=== PATIENT | male | born 2000 | race Caucasian/White ===

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

== ENCOUNTER 2022-04-22 00:27 | Inpatient (IN) | payer MEDICAID, OTHER ==
[2022-04-22] MEDS ORDERED: HALOPERIDOL LACTATE 5 MG/ML 1 ML VIAL IM PRN (06:41)
[2022-04-22] MEDS ORDERED: MAGNESIUM HYDROXIDE 2,400 MG/10 ML CUP PO PRN (06:41)
[2022-04-22] MEDS ORDERED: MAG HYDROX/AL HYDROX/SIMETH 30 ML CUP PO PRN (06:41)
[2022-04-22] MEDS ORDERED: ACETAMINOPHEN TAB 325 MG TAB PO PRN (06:41)
[2022-04-22] MEDS ORDERED: LORazepam 2 MG/ML INJ IM PRN (06:44)
[2022-04-22] MEDS ORDERED: haloperidoL 5 MG TAB PO PRN (06:45)
--- NOTE | 2022-04-22 07:05 | ED ---
Psych HPI - General Chief Complaint: Psychiatric Symptoms Stated Complaint: Mental health Time Seen by Provider: 04/22/22 00:49 Source: police Mode of arrival: ambulatory - History of Present Illness MD Complaint: suicidal ideation, feels depressed -: days(s) Associated Psychiatric Symptoms: depression, suicidal ideation History of same: No Quality: getting worse Improves With: none Worsens With: none Context: recent alcohol abuse - Related Data Home Medications Medication Instructions Recorded Confirmed Methylphenidate HCl [Ritalin] 10 mg PO DAILY@1500 01/22/14 03/07/17 cloNIDine [Catapres-TTS] 0.2 mg PO HS 01/22/14 03/07/17 Montelukast [Singulair] 10 mg PO HS 05/30/14 03/07/17 Cetirizine HCl [Zyrtec] 10 mg PO HS 11/30/16 03/07/17 Melatonin 5 mg PO HS 11/30/16 03/07/17 Methylphenidate HCl [Ritalin LA] 30 mg PO DAILY 11/30/16 03/07/17 Omeprazole [PriLOSEC] 20 mg PO HS 11/30/16 03/07/17 Previous Rx's Medication Instructions Recorded Ondansetron Odt [Zofran Odt] 4 mg PO Q8HR PRN #20 tab 11/30/17 Allergies Allergy/AdvReac Type Severity Reaction Status Date / Time No Known Allergies Allergy Verified 04/22/22 00:34 Review of Systems ROS Statement: Those systems with pertinent positive or pertinent negative responses have been documented in the HPI. ROS Other: All systems not noted in ROS Statement are negative. Constitutional: Denies: fever, chills Respiratory: Denies: cough, dyspnea Cardiovascular: Denies: chest pain, palpitations Gastrointestinal: Denies: abdominal pain, vomiting, diarrhea Genitourinary: Denies: dysuria Musculoskeletal: Denies: back pain Skin: Denies: rash Neurological: Denies: headache, weakness Past Medical History Past Medical History: Asthma History of Any Multi-Drug Resistant Organisms: None Reported Past Surgical History: Tonsillectomy Past Psychological History: ADD/ADHD, Depression Smoking Status: Current every day smoker, Vaper Past Alcohol Use History: Occasional Past Drug Use History: Marijuana General Exam Limitations: no limitations General appearance: alert, in no apparent distress Head exam: Present: atraumatic, normocephalic Eye exam: Present: normal appearance. Absent: scleral icterus, conjunctival injection Neck exam: Present: normal inspection, full ROM Respiratory exam: Present: normal lung sounds bilaterally. Absent: respiratory distress, wheezes, rales, rhonchi, stridor Cardiovascular Exam: Present: regular rate, normal rhythm, normal heart sounds. Absent: systolic murmur, diastolic murmur, rubs, gallop GI/Abdominal exam: Present: soft. Absent: distended, tenderness, guarding, rebound, rigid, mass Extremities exam: Present: normal inspection, normal capillary refill. Absent: pedal edema, calf tenderness Back exam: Present: normal inspection. Absent: CVA tenderness (R), CVA tenderness (L) Neurological exam: Present: alert Psychiatric exam: Present: depressed, suicidal ideation. Absent: agitated, anxious, flat affect, homicidal ideation Skin exam: Present: warm, dry, intact, normal color. Absent: rash Course Vital Signs 04/22/22 00:32 Temperature 98 F Pulse Rate 128 H Respiratory 20 Rate Blood Pressure 151/76 O2 Sat by Pulse 98 Oximetry Medical Decision Making - Medical Decision Making @ -[none] CT interpreted by me (1pt min.)? @ -[none] U/S interpreted by me (1pt. min.)? @ -[none] What testing was considered but not performed? (CT, X-rays, U/S, labs)? Why? @ [CT, X-rays, U/S, labs? Why?] What meds were considered but not given? Why? @ -[none] Did you discuss the management of the patient with other professionals? @ -Emergency psychiatric services Did you reconcile home meds? @ -[none] Was smoking cessation discussed for >3mins.? @ -[none] Was critical care preformed (if so, how long)? @ -[none] Were there social determinants of health that impacted care today? How? (Homelessness, low income, unemployed, alcoholism, drug addiction, transportation, low edu. Level, literacy, decrease access to med. care, penitentiary, rehab)? @ -no Was there de-escalation of care discussed even if they declined? (Discuss DNR or withdrawal of care, Hospice)? @ -[no What co-morbidities impacted this encounter? (DM, HTN, Smoking, COPD, CAD, Cancer, CVA, Hep., AIDS, mental health diagnosis, sleep apnea, morbid obesity)? @ -[ Was patient admitted / discharged? @ -Admitted psychiatric service Undiagnosed new problem with uncertain prognosis? @ -[none] Drug Therapy requiring intensive monitoring for toxicity (Heparin, Nitro, Insulin, Cardizem)? @ -[none] Were any procedures done? @ -[none] Diagnosis/symptom? @ -Mood disorder Acute, or Chronic, or Acute on Chronic? @ -Acute Uncomplicated (without systemic symptoms) or Complicated (systemic symptoms)? @ -[Uncomplicated Side effects of treatment? @ -[none] Exacerbation, Progression, or Severe Exacerbation] @ -[no] Poses a threat to life or bodily function? @ -Yes - Lab Data Lab Results 04/22/22 04/22/22 Range/Units 05:54 06:39 Urine Color Light Yellow Urine Appearance Clear (Clear) Urine pH 5.5 (5.0-8.0) Ur Specific [place] 1.004 (1.001-1.035) Urine Protein Negative (Negative) Urine Glucose (UA) Negative (Negative) Urine Ketones Negative (Negative) Urine Blood Negative (Negative) Urine Nitrite Negative (Negative) Urine Bilirubin Negative (Negative) Urine Urobilinogen <2.0 (<2.0) mg/dL Ur Leukocyte Esterase Negative (Negative) Urine Opiates Screen Not Detected (NotDetected) Ur Oxycodone Screen Not Detected (NotDetected) Urine Methadone Screen Not Detected (NotDetected) Ur Propoxyphene Screen Not Detected (NotDetected) Ur Barbiturates Screen Not Detected (NotDetected) U Tricyclic Antidepress Not Detected (NotDetected) Ur Phencyclidine Scrn Not Detected (NotDetected) Ur Amphetamines Screen Not Detected (NotDetected) U Methamphetamines Scrn Not Detected (NotDetected) U Benzodiazepines Scrn Not Detected (NotDetected) Urine Cocaine Screen Not Detected (NotDetected) U Marijuana (THC) Screen Detected H (NotDetected) Coronavirus (PCR) Not Detected (Not Detectd) Disposition Clinical Impression: Mood disorder Disposition: ADMITTED IP TO THIS [facility] Condition: Fair Is patient prescribed a controlled substance at d/c from ED?: No
[2022-04-22 07:12] LABS: Appearance,Urine Clear (Clear); Bilirubin,Urine Negative (Negative); Blood,Urine Negative (Negative); Color,Urine Light Yellow; Glucose,Urine (UA) Negative (Negative); Ketones,Urine Negative (Negative); Leukocyte Esterase,Urine Negative (Negative); Nitrite,Urine Negative (Negative); PH, Urine 5.5 (5.0-8.0); Protein,Urine Negative (Negative); Specific Gravity,Urine 1.004 (1.001-1.035); Urobilinogen,Urine <2.0 mg/dL (<2.0)
[2022-04-22 07:24] LABS: Amphetamine Screen,Urine Not Detected (NotDetected); Barbiturate Screen,Urine Not Detected (NotDetected); Benzodiazepines Screen,Urine Not Detected (NotDetected); Cocaine Screen,Urine Not Detected (NotDetected); Methadone Screen, Urine Not Detected (NotDetected); Opiate Screen,Urine Not Detected (NotDetected); Oxycodone Screen, Urine Not Detected (NotDetected); Phencyclidine Screen,Urine Not Detected (NotDetected); Tricyclic Antidepressant,Urine Not Detected (NotDetected); Urn Cannabinoid Scrn Detected (NotDetected)
--- NOTE | 2022-04-22 08:44 | P.HP ---
Psychiatric H&P - . H&P Date: 04/22/22 History & Physical: Allergies Allergy/AdvReac Type Severity Reaction Status Date / Time No Known Allergies Allergy Verified 04/22/22 00:34 Vital Signs Temp 98 F 04/22/22 00:32 Pulse 128 H 04/22/22 00:32 Resp 20 04/22/22 00:32 BP 151/76 04/22/22 00:32 Pulse Ox 98 04/22/22 00:32 FiO2 Intake & Output 04/21/22 04/22/22 04/22/22 18:59 06:59 18:59 Weight 81.647 kg Laboratory Last Values Urine Color Light Yellow 04/22/22 06:39 Urine Appearance Clear (Clear) 04/22/22 06:39 Urine pH 5.5 (5.0-8.0) 04/22/22 06:39 Ur Specific [place] 1.004 (1.001-1.035) 04/22/22 06:39 Urine Protein Negative (Negative) 04/22/22 06:39 Urine Glucose (UA) Negative (Negative) 04/22/22 06:39 Urine Ketones Negative (Negative) 04/22/22 06:39 Urine Blood Negative (Negative) 04/22/22 06:39 Urine Nitrite Negative (Negative) 04/22/22 06:39 Urine Bilirubin Negative (Negative) 04/22/22 06:39 Urine Urobilinogen <2.0 mg/dL (<2.0) 04/22/22 06:39 Ur Leukocyte Esterase Negative (Negative) 04/22/22 06:39 Urine Opiates Screen Not Detected (NotDetected) 04/22/22 06:39 Ur Oxycodone Screen Not Detected (NotDetected) 04/22/22 06:39 Urine Methadone Screen Not Detected (NotDetected) 04/22/22 06:39 Ur Propoxyphene Screen Not Detected (NotDetected) 04/22/22 06:39 Ur Barbiturates Screen Not Detected (NotDetected) 04/22/22 06:39 U Tricyclic Antidepress Not Detected (NotDetected) 04/22/22 06:39 Ur Phencyclidine Scrn Not Detected (NotDetected) 04/22/22 06:39 Ur Amphetamines Screen Not Detected (NotDetected) 04/22/22 06:39 U Methamphetamines Scrn Not Detected (NotDetected) 04/22/22 06:39 U Benzodiazepines Scrn Not Detected (NotDetected) 04/22/22 06:39 Urine Cocaine Screen Not Detected (NotDetected) 04/22/22 06:39 U Marijuana (THC) Screen Detected (NotDetected) H 04/22/22 06:39 Coronavirus (PCR) Not Detected (Not Detectd) 04/22/22 05:54 04/22/22 08:29 The patient was admitted last night in voluntarily. He had gone to a [employer] and had too much to drink. The family notes that he has been more and more depressed ever since his mother 2 years ago. She was just 36 and of double pneumonia. More recently he lost his job and although he lives alone in an apartment is not sure how he is going to pay for. He admits to being a loner does not like people has no friends and very little contact with family. His family says that they have noted that he has not been sleeping or eating. When he was sufficiently disinhibited with alcohol he began to say things that were "dark" including the intent that if he went home he would kill himself. In the emergency room he answered questions vaguely, "yes no maybe" he would not say he was suicidal he would not say he was not suicidal he just said he didn't want to be here but did not promise that if he went home he would not kill himself. Past treatment: Patient denies ever having been to counseling or having taken any medications however the chart says that he is on Ritalin LA 30 in the morning and short acting 10 mg at 3 PM Family history: Other than having made some comments about his father not liking him he basically did not want to talk about family. He said that he supposes he gets along with them okay and he didn't know if they had any psychiatric problems with depression or alcohol. Substance use: He did admit to almost daily marijuana use and occasional alcohol use although getting drunk is unusual for him. He denied the use of any illicit drugs Mental status exam: I found him lying in a dark room at 8:00 in the morning. When asked him if he would come and talk to me he said, "how long will this take" The patient had 0 eye contact throughout the evaluation He moved extremely slowly and sat slouched in his chair with his hands hanging down to the side motionless. Speech: Multiple times I asked him to please repeat himself as I could not hear him 4 feet away. He is hair was disheveled and he is not taking any of first to get dressed by 9 in the morning and did not go to breakfasts although he claims his appetite is fine... He was oriented to to date. He said, "fucking first" I gave him 3 things to remember and after 2 repeats he was able to repeat them when asked him to remember them later he said that he could not I think he just didn't want to try. He could not think of anything similar between cats and snakes He could not think of any application for the proverb the grass looks greener on the side defense. He appears to be of good intelligence he just does not want to try. Judgment: Not participating in an interview with your psychiatrist when you don't want to be in the hospital and don't want treatment does not make sense and shows poor judgment General information he can name the last 3 presidents but only one of the [facility] and that was Jewel Marino. He denies any hallucinations I did not see any evidence thereof he denied that he had any paranoid ideas He denied ever having had a manic episode. When asked if he felt suicidal he basically said, "I don't know. " Diagnosis: Major depression single episode severe Dysthymic disorder Assessment patient is totally uncooperative and is impossible to assess but he looks severely medically depressed and was expressing suicidal ideas with his family and these are probably his actual inner thoughts reveal because he was disinhibited. I believe that he has a danger to himself needs to get on medication get into counseling and be more open about what is making him so depressed. Plan: He needs to be hospitalized we will try to talk him into taking medications. He did sign in but is a little unclear why. We will probably have to serve him take him to court but I think it would be good to give him one day to settle in. I spent a lot of time explaining to him what the purpose of medications are that they're not permanent and they make it easier to do the work to turn her life around. Hopefully by tomorrow he'll decide to take medications.
[2022-04-22] MEDS: NICOTINE 14MG/24HR PATCH TRANSDERM SCH (10:42)
--- NOTE | 2022-04-23 05:04 | P.PN ---
Progress Note - Text Progress Note Date: 04/22/22 Attempted to see the patient in the mental health unit on 04/22/22 at 2200. The patient refused to be seen to be evaluated.
--- NOTE | 2022-04-23 11:53 | P.PN ---
Progress Note - Text Progress Note Date: 04/23/22 Interval History: Patient was seen resting in bed and was directable and agreeable to speak with the caption writer in his room. The patient was initially upset and did not want to participate in the psychiatric interview however he was slow to warm up. The patient is currently denying any suicidal or homicidal ideation, intention, and/or plan. He is not reporting any auditory or visual hallucinations. He is denying any paranoia or other delusions. Despite this, the patient remains primarily isolative to himself in his bedroom, with minimal energy, interaction, and very poor eye contact. His hygiene and grooming is also poor. During the interview, the patient became quite tearful after asking if anyone asked him how he is feeling. He does express that he has some issues regarding his family relationships. He does endorse feelings of hopelessness and helplessness. He does not confirm or deny the need for medications. He was informed that medication will be ordered this evening. Mental Status Exam: General Appearance: Patient appears to be stated age is alert, initially uncooperative but later cooperates, and is directable. Very disheveled. Behavior: Displays psychomotor retardation. Poor eye contact. Tearful. Speech: Patient's speech is nonspontaneous, low in volume, short and abrupt. Mood/Affect: Mood is "fine, I just need to go home," affect is flat, withdrawn, and tearful. Suicidality/Homicidality: Patient denies having any suicidal or homicidal ideation intent or plan. Perceptions: Patient denies any visual hallucinations and denies any auditory hallucinations Though content/process: Patient appears to be dysphoric. Memory and concentration: AOX3, grossly intact for the purposes of this session Judgment and insight: Poor Vital Signs Temp 97.3 F L 04/23/22 06:35 Pulse 80 04/23/22 06:35 Resp 14 04/23/22 06:35 BP 135/68 04/23/22 06:35 Pulse Ox 98 04/22/22 00:32 FiO2 Intake & Output 04/22/22 04/23/22 04/23/22 18:59 06:59 18:59 Weight 81.647 kg Assessment Major depressive disorder Plan: -Patient continues to meet criteria for inpatient psychiatric admission for symptom stabilization and safety. Patient has signed adult voluntary form. Should patient refuse medications, we will likely proceed with petition and certification. Medications: \\Prozac 30 mg by mouth at bedtime for depression -When necessary Ativan and Haldol for agitation/aggression. -NRT - nicotine patch -SW on board for discharge planning. Encouraged the patient to participate in milieu.
[2022-04-23] MEDS: NICOTINE 14MG/24HR PATCH TRANSDERM SCH ×3 (13:23→19:56)
[2022-04-23] MEDS: FLUoxetine HCL 10 MG CAP PO SCH (19:55)
[2022-04-24] MEDS: NICOTINE 14MG/24HR PATCH TRANSDERM SCH (11:29)
--- NOTE | 2022-04-24 12:34 | P.PN ---
Progress Note - Text Progress Note Date: 04/24/22 Interval History: Patient was seen resting in bed and was directable and agreeable to speak with the sports book writer in his room. The patient reports that he is unsure as to why he was admitted. He is denying any suicidal or homicidal ideation, intention, and/or plan. He is not reporting any auditory or visual hallucinations. He reports no paranoia or other delusions. He has been adherent with his medication however reports that he felt that the Prozac caused his mind to race. He reports no issues regarding his sleep but states that his appetite continues to be low. He continues to remain primarily isolative to himself in his room and has not been able to address his hygiene. The patient was encouraged to go to groups. He expresses disinterest at this time. Mental Status Exam: General Appearance: Patient appears to be stated age is alert, initially uncooperative but later cooperates, and is directable. Very disheveled. Behavior: Displays psychomotor retardation. Poor eye contact. Speech: Patient's speech is nonspontaneous, low in volume, short and abrupt. Mood/Affect: Mood is "I'm just tired," affect is flat, withdrawn, and tearful. Suicidality/Homicidality: Patient denies having any suicidal or homicidal ideation intent or plan. Perceptions: Patient denies any visual hallucinations and denies any auditory hallucinations Though content/process: Patient appears to be dysphoric. Memory and concentration: AOX3, grossly intact for the purposes of this session Judgment and insight: Poor Vital Signs Temp 96.9 F L 04/24/22 06:00 Pulse 69 04/24/22 06:00 Resp 17 04/24/22 06:00 BP 128/61 04/24/22 06:00 Pulse Ox 94 L 04/24/22 06:00 FiO2 Assessment Major depressive disorder Plan: -Patient continues to meet criteria for inpatient psychiatric admission for symptom stabilization and safety. Patient has signed adult voluntary form. Medications: \\Prozac 30 mg by mouth at bedtime for depression -When necessary Ativan and Haldol for agitation/aggression. -NRT - nicotine patch -SW on board for discharge planning. Encouraged the patient to participate in milieu.
[2022-04-24] MEDS: FLUoxetine HCL 10 MG CAP PO SCH (21:39)
--- NOTE | 2022-04-25 01:03 | P.CONS ---
History of Present Illness - Reason for Consult Consult date: 04/25/22 - History of Present Illness The patient is a 22-year-old male with a PMH of asthma, ADHD, depression, marijuana abuse, tobacco abuse was brought to the emergency room under police custody after his father petitioned him for expressing suicidal ideation. The patient was admitted to the mental health unit where he was seen and evaluated. The patient complained of left medial hand pain after he punched a hardwood floor prior to arrival at the emergency room. He reported moderate pain rated at a 5 out of 10 and is able to make a fist. Denied any numbness or tingling. Also denied any additional complaints. He denied experiencing chest discomfort, shortness of breath, fever, chills, cough, nausea, vomiting, abdominal pain, diarrhea. Reports occasional marijuana use and smoking one pack of cigars daily. Review of systems: Pertinent positives and negatives as discussed in HPI, a complete review of systems was performed and all other systems are negative. Physical examination: General: non toxic, no distress, appears at stated age, normal weight Derm: no unusual rashes/lesions, no unusual ecchymoses, warm, dry Head: atraumatic, normocephalic, symmetric Eyes: EOMI, no lid lag, anicteric sclera ENT: Nose and ears atraumatic, no thrush, no pharyngeal erythema Neck: trachea midline, supple Mouth: no lip lesion, mucus membranes moist Cardiovascular: S1S2 reg, no murmur, no edema Lungs: CTA bilateral, no rhonchi, no rales , no accessory muscle use Abdominal: soft, nontender to palpation, no guarding Ext: no gross muscle atrophy, no contractures, left hand medial dorsal surface tenderness with normal range of motion Neuro: No gross focal neuro deficits noted Psych: Alert, oriented, appropriate affect Assessment/plan Left hand trauma with pain -Obtain x-ray to rule out underlying fracture Hx of Asthma -Patient does not take inhalers at home Chronic conditions: Marijuana, tobacco abuse -Advised on the importance of cessation Thank you for allowing us to participate in the care of this patient. We will follow peripherally. Do not hesitate to contact us with questions. Someone can be reached from the [facility] hospitalist group at all hours of the day at [phone]. Past Medical History Past Medical History: Asthma History of Any Multi-Drug Resistant Organisms: None Reported Past Surgical History: Tonsillectomy Additional Past Surgical History / Comment(s): Pt is dressed in his own street clothes. Past Anesthesia/Blood Transfusion Reactions: No Reported Reaction Past Psychological History: ADD/ADHD, Depression Smoking Status: Current every day smoker, Vaper Past Alcohol Use History: Occasional Past Drug Use History: Marijuana - Past Family History Father Family Medical History: COPD Medications and Allergies Home Medications Medication Instructions Recorded Confirmed Type No Known Home Medications 04/23/22 04/23/22 History Allergies Allergy/AdvReac Type Severity Reaction Status Date / Time No Known Allergies Allergy Verified 04/22/22 00:34 Physical Exam Vitals: Vital Signs Temp Pulse Resp BP Pulse Ox 04/24/22 06:00 96.9 F L 69 17 128/61 94 L
[2022-04-25] MEDS: NICOTINE 14MG/24HR PATCH TRANSDERM SCH (08:09)
--- NOTE | 2022-04-25 11:45 | P.PN ---
Progress Note - Text Progress Note Date: 04/25/22 Interval History: Patient was seen resting in bed and was directable and agreeable to speak with the comic book writer in his room. The patient is currently denying any suicidal or homicidal ideation, intention, and/or plan. He is not reporting any auditory or visual hallucinations. He denies any paranoia or other delusions. The patient has been in adherent with his medication and is not endorsing any significant side effects at this time. He continues to remain primarily isolative to himself in his room. He does agree that him and his father have not been seeing eye to eye in regards to his life choices. He was encouraged to work on communicating with his family about how he has been feeling and what needs to be done. He was encouraged to be out of bed and to attend groups. Mental Status Exam: General Appearance: Patient appears to be stated age is alert, directable, and cooperative. Disheveled. Behavior: Patient continues to display psychomotor retardation. Eye contact is improving. Speech: Patient's speech is nonspontaneous, low in volume, short and abrupt. Mood/Affect: Mood is "I'm okay," affect is constricted Suicidality/Homicidality: Patient denies having any suicidal or homicidal ideation intent or plan. Perceptions: Patient denies any visual hallucinations and denies any auditory hallucinations Though content/process: Less dysphoric. No future orientation. Memory and concentration: AOX3, grossly intact for the purposes of this session Judgment and insight: Poor Vital Signs Temp 96.9 F L 04/24/22 06:00 Pulse 69 04/24/22 06:00 Resp 17 04/24/22 06:00 BP 128/61 04/24/22 06:00 Pulse Ox 94 L 04/24/22 06:00 FiO2 Assessment Major depressive disorder Cannabis use disorder Plan: -Patient continues to meet criteria for inpatient psychiatric admission for symptom stabilization and safety. Patient has signed adult voluntary form. Medications: Prozac 30 mg by mouth at bedtime for depression -When necessary Ativan and Haldol for agitation/aggression. -NRT - nicotine patch -SW on board for discharge planning. Encouraged the patient to participate in milieu.
[2022-04-25] MEDS: FLUoxetine HCL 10 MG CAP PO SCH (21:23)
[2022-04-26] MEDS: NICOTINE 14MG/24HR PATCH TRANSDERM SCH (08:18)
[2022-04-26] MEDS ORDERED: FLUoxetine HCL 10 MG CAP PO SCH (12:00)
--- NOTE | 2022-04-26 12:03 | P.PN ---
Progress Note - Text Progress Note Date: 04/26/22 Interval History: Patient was seen sitting at the table today outside the activities room and wo rking on a retreat. She was agreeable to strict commercial insurance underwriter in the office today. He claims that he was feeling a bit depressed this morning and claims that his anxiety has been improving mildly. He claims that he feels he is almost ready for discharge likely tomorrow. He claims that he did not sleep much at all last night and we spoke about the options and he was agreeable to try trazodone tonight. He claims that his appetite is fair at this time. He is trying to go to some groups and trying to participate. She was also seen wandering the hallways with another patient and also trying to socialize more. At this time he is denying any suicidal or homicidal ideations intent or plan. Denying any auditory or visual hallucinations. Mental Status Exam: General Appearance: Patient appears to be stated age is alert, directable, and more cooperative. Hygiene and grooming. Behavior: Patient is more cooperative today. No psychomotor retardation. Speech: Patient's speech is nonspontaneous, low in volume, improving mildly Mood/Affect: Mood is "a bit better" affect is constricted Suicidality/Homicidality: Patient denies having any suicidal or homicidal ideation intent or plan. Perceptions: Patient denies any visual hallucinations and denies any auditory hallucinations Though content/process: Less dysphoric. No paranoia or delusions. [place]. Memory and concentration: AOX3, grossly intact for the purposes of this session Judgment and insight: Poor, improving mildly Assessment: Major depressive disorder Cannabis use disorder Plan: -Patient continues to meet criteria for inpatient psychiatric admission for symptom stabilization and safety. Patient has signed adult voluntary form. Medications: start trazodone 50 mg qhs for insomnia/mood, Prozac 30 mg by to daily for depression and anxiety and increase to 40 mg tomorrow. -When necessary Ativan and Haldol for agitation/aggression. -NRT - nicotine patch -SW on board for discharge planning. Encouraged the patient to participate in milieu. possibly discharge tomorrow if patient is improving.
[2022-04-26] MEDS ORDERED: FLUoxetine HCL 10 MG CAP PO STA (12:04)
[2022-04-26] MEDS: traZODone HCL 50 MG TAB PO SCH (23:59)
[2022-04-27] MEDS: NICOTINE 14MG/24HR PATCH TRANSDERM SCH (04:56)
[2022-04-27] MEDS ORDERED: FLUoxetine HCL 20 MG CAP PO SCH (09:00)
[2022-04-27] MEDS: LORazepam 1 MG TAB PO PRN (12:14)
--- NOTE | 2022-04-27 13:58 | P.PN ---
Progress Note - Text Progress Note Date: 04/27/22 Interval History: Patient was seen and was directable and agreeable to speak with poem writer in the office. He is crying during entire assessment and affect is depressed, states he "don't feel good". He appears to minimize his depression in hopes of discharge. He states he is responding well to the increase in Prozac from 30 mg to 40 mg this morning. He states after taking the Prozac this morning, he began to have "racing thoughts, feel unsettled and restless". He reports poor sleep last night of about 4 hours. He endorses feeling anxious. He is denying suicidal and homicidal ideation at this time, however he is crying and appears to be minimizing his symptoms. He becomes upset when told he would not be discharged today. At this time patient denies any suicidal or homicidal ideation, intent or plan. Patient denies any auditory, visual hallucinations and denies any paranoia or delusions. Patient denies any side effects from the medications and has been compliant with meds. Mental Status Exam: General Appearance: Patient appears to be stated age, dressed in camoflauge clothing. Behavior: Patient is crying, tearful, seated without agitated behavior. Speech: Patient's speech is fluent and non-pressured, soft tone. Mood/Affect: Mood is "don't feel good", affect is congruent and constricted. Suicidality/Homicidality: Patient denies having any suicidal or homicidal ideation intent or plan, however he is tearful and depressed. Perceptions: Patient denies any visual hallucinations and denies any auditory hallucinations. Though content/process: There is no evidence of any delusional thought content and thought process is linear. Memory and concentration: AOX3, grossly intact for the purposes of this session Judgment and insight: Fair Assessment: Major depressive disorder Cannabis use disorder Plan: -Patient continues to meet criteria for inpatient psychiatric admission for symptom stabilization and safety. -Medications: Decrease Prozac to 30 mg daily for depression since he feels the 40 mg is too much. We discussed switching Prozac to a different antidepressant however he is not agreeable at this time. Will attempt to address antidepressant again with him later today after he calms down. -When necessary Ativan and Haldol for agitation/aggression. -NRT - nicotine patch -SW on board for discharge planning. Encouraged the patient to participate in milieu.
[2022-04-27] MEDS: traZODone HCL 50 MG TAB PO SCH (21:18)
[2022-04-28] MEDS: NICOTINE 14MG/24HR PATCH TRANSDERM SCH (08:27)
[2022-04-28] MEDS ORDERED: FLUoxetine HCL 10 MG CAP PO SCH (09:00)
[2022-04-28] MEDS ORDERED: SERTRALINE 50 MG TAB PO SCH (09:00)
--- NOTE | 2022-04-28 19:36 | P.PN ---
Progress Note - Text Progress Note Date: 04/28/22 Interval History: Patient was seen isolating to his room and asleep in bed. He is agreeable to speak with principal technical writer. He reports feeling a little bit better today after stopping the Prozac and starting Zoloft. He reports the Zoloft makes him a bit tired and so we discussed moving it to the evening and he agreed. He appears withdrawn and has not been attending groups. At this time patient denies any suicidal or homicidal ideation, intent or plan. Patient denies any auditory, visual hallucinations and denies any paranoia or delusions. Mental Status Exam: General Appearance: Patient appears to be stated age, dressed in camoflauge clothing. Behavior: Patient appears withdrawn, isolative, laying in bed. Speech: Patient's speech is fluent and non-pressured, soft tone. Mood/Affect: Mood is "better today", affect is depressed and constricted. Suicidality/Homicidality: Patient denies having any suicidal or homicidal ideation intent or plan. Perceptions: Patient denies any visual hallucinations and denies any auditory hallucinations. Though content/process: There is no evidence of any delusional thought content and thought process is linear. Memory and concentration: AOX3, grossly intact for the purposes of this session Judgment and insight: Fair Assessment: Major depressive disorder Cannabis use disorder Plan: -Patient continues to meet criteria for inpatient psychiatric admission for symptom stabilization and safety. -Medications: Prozac discontinued and he started Zoloft 50 mg daily this morning. Will change Zoloft to 75 mg QHS starting tomorrow night. -When necessary Ativan and Haldol for agitation/aggression. -NRT - nicotine patch -SW on board for discharge planning. Encouraged the patient to participate in milieu.
[2022-04-28] MEDS: traZODone HCL 50 MG TAB PO SCH (21:20)
[2022-04-29] MEDS: NICOTINE 14MG/24HR PATCH TRANSDERM SCH (08:04)
[2022-04-29 15:43] VITALS: RESP 16
[2022-04-29] MEDS ORDERED: SERTRALINE 50 MG TAB PO SCH (21:00)
[2022-04-29] MEDS: traZODone HCL 50 MG TAB PO SCH (21:25)
--- NOTE | 2022-04-29 22:21 | P.PN ---
Progress Note - Text Progress Note Date: 04/29/22 Interval History: [facility] and is agreeable to speak with parts data writer. He reports feeling better today, affect is brighter, is not tearful, is more engaged this evening. He was more withdrawn earlier in the day and did not attend most groups. At this time patient denies any suicidal or homicidal ideation, intent or plan. Patient denies any auditory, visual hallucinations and denies any paranoia or delusions. Mental Status Exam: General Appearance: Patient appears to be stated age, dressed in camoflauge clothing. Behavior: Patient is calm and attempts to cooperate, continues to be somewhat withdrawn but improving. Speech: Patient's speech is fluent and non-pressured, soft tone. Mood/Affect: Mood is "better today", affect is depressed and constricted. Suicidality/Homicidality: Patient denies having any suicidal or homicidal ideation intent or plan. Perceptions: Patient denies any visual hallucinations and denies any auditory hallucinations. Though content/process: There is no evidence of any delusional thought content and thought process is linear. Memory and concentration: AOX3, grossly intact for the purposes of this session Judgment and insight: Fair Assessment: Major depressive disorder Cannabis use disorder Plan: -Patient continues to meet criteria for inpatient psychiatric admission for symptom stabilization and safety. -Medications: Zoloft increased to 75 mg QHS starting tonight for depression. -When necessary Ativan and Haldol for agitation/aggression. -NRT - nicotine patch -SW on board for discharge planning. Encouraged the patient to participate in milieu.
[2022-04-29] MEDS: LORazepam 1 MG TAB PO PRN (23:13)
[2022-04-29 23:15] VITALS: TEMP 97.9
[2022-04-30] MEDS: NICOTINE 14MG/24HR PATCH TRANSDERM SCH (08:12)
--- NOTE | 2022-04-30 12:44 | P.PN ---
Progress Note - Text Progress Note Date: 04/30/22 Interval History: Patient was seen in the [facility] today and is agreeable to speak with caption writer. He reports feeling better since he stopped the Prozac, mood and affect are improving, is not tearful, is more engaged today however he is still not attending groups, is soft spoken with downward gaze, still somewhat depressed and withdrawn. At this time patient denies any suicidal or homicidal ideation, intent or plan. Patient denies any auditory, visual hallucinations and denies any paranoia or delusions. Mental Status Exam: General Appearance: Patient appears to be stated age, dressed in camoflauge clothing, fair hygiene. Behavior: Patient is calm and attempts to cooperate, continues to be somewhat withdrawn but improving. Speech: Patient's speech is fluent and non-pressured, soft tone. Mood/Affect: Mood is "better today", affect is improving and constricted. Suicidality/Homicidality: Patient denies having any suicidal or homicidal ideation intent or plan. Perceptions: Patient denies any visual hallucinations and denies any auditory hallucinations. Though content/process: There is no evidence of any delusional thought content and thought process is linear. Memory and concentration: AOX3, grossly intact for the purposes of this session Judgment and insight: Fair Assessment: Major depressive disorder Cannabis use disorder Plan: -Patient continues to meet criteria for inpatient psychiatric admission for symptom stabilization and safety. -Medications: Increase Zoloft to 100 mg QHS starting tonight for depression. -When necessary Ativan and Haldol for agitation/aggression. -NRT - nicotine patch -SW on board for discharge planning. Encouraged the patient to participate in milieu.
[2022-04-30] MEDS ORDERED: SERTRALINE 100 MG TAB PO SCH (21:00)
[2022-04-30] MEDS: traZODone HCL 50 MG TAB PO SCH (22:17)
[2022-04-30] MEDS: LORazepam 1 MG TAB PO PRN (22:17)
[2022-05-01 07:02] VITALS: BP 122/61; PULSE 90
[2022-05-01] MEDS: NICOTINE 14MG/24HR PATCH TRANSDERM SCH (08:17)
--- NOTE | 2022-05-01 11:06 | P.DS ---
Providers Date of admission: 04/22/22 06:40 Expected date of discharge: 05/01/22 Attending physician: Gio Pelletier MD Consults: 04/22/22 06:41 Consult Physician Routine Consulting Provider: Jerry Barone Consult Reason/Comments: H&P for mental health admission Do you want consulting provider notified?: Yes Primary care physician: Flaquito Jeromet - Discharge Diagnosis(es) (1) Major depressive disorder Current Visit: Yes Status: Acute Priority: High (2) Cannabis use disorder Current Visit: Yes Status: Chronic Priority: Medium (3) Tobacco use disorder Current Visit: Yes Status: Chronic Priority: Medium Hospital Course: Admission HPI: Initial psychiatric evaluation was covered by Dr. Vogel on 04/22/2022 who wrote: "The patient was admitted last night in voluntarily. He had gone to a [employer] and had too much to drink. The family notes that he has been more and more depressed ever since his mother 2 years ago. She was just 36 and of double pneumonia. More recently he lost his job and although he lives alone in an apartment is not sure how he is going to pay for. He admits to being a loner does not like people has no friends and very little contact with family. His family says that they have noted that he has not been sleeping or eating. When he was sufficiently disinhibited with alcohol he began to say things that were "dark" including the intent that if he went home he would kill himself. In the emergency room he answered questions vaguely, "yes no maybe" he would not say he was suicidal he would not say he was not suicidal he just said he didn't want to be here but did not promise that if he went home he would not kill himself. Past treatment: Patient denies ever having been to counseling or having taken any medications however the chart says that he is on Ritalin LA 30 in the morning and short acting 10 mg at 3 PM Family history: Other than having made some comments about his father not liking him he basically did not want to talk about family. He said that he supposes he gets along with them okay and he didn't know if they had any psychiatric problems with depression or alcohol. Substance use: He did admit to almost daily marijuana use and occasional alcohol use although getting drunk is unusual for him. He denied the use of any illicit drugs" Hospital course: Upon admission to the unit patient was initially presenting as withdrawn, with psychomotor retardation, dysphoric thought process, and occasionally tearful. Patient was however directable and agreeable to commence treatment. Patient got along well with other patients on the unit and followed unit protocol. Patient was compliant with the medications and denied any side effects throughout hospital course. Patient was started on Prozac for depression. Patient spoke of his stressors and engaged in therapy both group and individual. Patient was also seen by medical team for history and physical exam. Over the course the hospital physician, the patient displayed gradual but significant improvement in regards to his mood and affect. He was eventually transition to Zoloft due to concerns for side effects of the medication. He did well with Zoloft. He became more spontaneous, future oriented, and began attending groups with high- level participation. On the day of discharge, the patient is denying any suicidal or homicidal ideation, intention, and/or plan. He is not reporting any auditory or visual hallucinations. He denies any paranoia or other delusions. He has been adherent with his medication and is not endorsing any side effects. The patient was counseled great length on abstaining from all substances including alcohol, tobacco, marijuana, and illicit drugs. He was counseled at length on importance of medication adherence and appropriate outpatient follow- up. He reported no access to firearms or other weapons. He remains future and goal oriented with plans to return back to work and eventually start his own business. Mental status exam: General Appearance: Patient appears to be stated age is alert, pleasant, and cooperative. Patient is in no acute distress and has fair hygiene and grooming Behavior: Patient is calmly seated without any agitated behavior. Speech: Patient's speech is fluent and nonpressured. Mood/Affect: Patient reports their mood is "much better", affect is congruent and euthymic to bright. Full range of affect. Suicidality/Homicidality: Patient denies having any suicidal or homicidal ideation intent or plan. Perceptions: Patient denies any auditory or visual hallucinations. Though content/process: There is no evidence of any delusional thought content and thought process is linear and goal-directed. Patient is future oriented. Memory and concentration: AOX3, grossly intact for the purposes of this session. Can spell "WORLD" backwards correctly. Judgment and insight: Improved Impression: Major depressive disorder Cannabis use disorder Tobacco use disorder Plan: -Continue with discharge today as patient has improved and stabilized psychiatrically and is not currently an imminent threat to himself and/or others. Current risk factors include his substance use however he is future and goal oriented and has no prior attempts at suicide. -Continue medications: Trazodone 50 mg by mouth at bedtime for insomnia Zoloft 100 mg by mouth at bedtime for depression Habitrol patches nicotine cessation -Patient was counseled on the need for medication compliance and appropriate follow-up at mental health and also primary care for medical issues. Patient verbalized understanding and agreed. -Social work to arrange for and conduct family meeting to ensure safety upon discharge and answer any questions/concerns. Social work also to arrange for patients follow up appointments with [facility] for psychiatric care along with follow up with primary care provider. -Patient counseled on abstaining from recreational drugs and marijuana and alcohol. Was informed/educated on the adverse effects on their physical and mental health. Patient verbally agreed and understood. -Patient was instructed to return to the hospital or seek immediate medical care if their psychiatric or medical symptoms do worsen or reoccur. -Psychoeducation and supportive therapy provided to patient. Risks and benefits of pharmacological treatment versus the risks and benefits of nontreatment weight and discussed. Informed consent discussion held. Common side effects of psychotropics discussed such as, but not limited to headache, GI disturbance, sexual dysfunction, movement disorders, sedation, and orthostatic hypotension. Life threatening and blackbox warnings of prescribed medications also discussed. Potential risks of operating a vehicle or heavy machinery discussed with patient at length. Advised on importance of compliance and a reliable and responsible manner. Patient advised to review FDA consumer labeling of all medications prior to taking. Patient verbalized understanding of potential risks, and agrees with current treatment plan. Patient advised to medically contact physician/emergency personnel if any acute changes in condition occur. Vital Signs Temp 97.9 F 05/01/22 07:02 Pulse 90 05/01/22 07:02 Resp 16 05/01/22 07:02 BP 122/61 05/01/22 07:02 Pulse Ox 99 05/01/22 07:02 FiO2 Laboratory Results Urine Color Light Yellow 04/22/22 06:39 Urine Appearance Clear (Clear) 04/22/22 06:39 Urine pH 5.5 (5.0-8.0) 04/22/22 06:39 Ur Specific [place] 1.004 (1.001-1.035) 04/22/22 06:39 Urine Protein Negative (Negative) 04/22/22 06:39 Urine Glucose (UA) Negative (Negative) 04/22/22 06:39 Urine Ketones Negative (Negative) 04/22/22 06:39 Urine Blood Negative (Negative) 04/22/22 06:39 Urine Nitrite Negative (Negative) 04/22/22 06:39 Urine Bilirubin Negative (Negative) 04/22/22 06:39 Urine Urobilinogen <2.0 mg/dL (<2.0) 04/22/22 06:39 Ur Leukocyte Esterase Negative (Negative) 04/22/22 06:39 Urine Opiates Screen Not Detected (NotDetected) 04/22/22 06:39 Ur Oxycodone Screen Not Detected (NotDetected) 04/22/22 06:39 Urine Methadone Screen Not Detected (NotDetected) 04/22/22 06:39 Ur Propoxyphene Screen Not Detected (NotDetected) 04/22/22 06:39 Ur Barbiturates Screen Not Detected (NotDetected) 04/22/22 06:39 U Tricyclic Antidepress Not Detected (NotDetected) 04/22/22 06:39 Ur Phencyclidine Scrn Not Detected (NotDetected) 04/22/22 06:39 Ur Amphetamines Screen Not Detected (NotDetected) 04/22/22 06:39 U Methamphetamines Scrn Not Detected (NotDetected) 04/22/22 06:39 U Benzodiazepines Scrn Not Detected (NotDetected) 04/22/22 06:39 Urine Cocaine Screen Not Detected (NotDetected) 04/22/22 06:39 U Marijuana (THC) Screen Detected (NotDetected) H 04/22/22 06:39 Coronavirus (PCR) Not Detected (Not Detectd) 04/22/22 05:54 Allergies Allergy/AdvReac Type Severity Reaction Status Date / Time No Known Allergies Allergy Verified 04/22/22 00:34 Patient Condition at Discharge: Stable Plan - Discharge Summary Discharge Rx Participant: No New Discharge Prescriptions: New traZODone HCL [Desyrel] 50 mg PO HS 30 Days tab Sertraline [Zoloft] 100 mg PO HS 30 Days tab Nicotine 14Mg/24Hr Patch [Habitrol] 1 patch TRANSDERM DAILY 15 Days patch Discharge Medication List Nicotine 14Mg/24Hr Patch [Habitrol] 1 patch TRANSDERM DAILY 15 Days patch 05/01/22 [Rx] Sertraline [Zoloft] 100 mg PO HS 30 Days tab 05/01/22 [Rx] traZODone HCL [Desyrel] 50 mg PO HS 30 Days tab 05/01/22 [Rx] Follow up Appointment(s)/Referral(s): [facility] [Outside] - 05/04/22 11:00 am (with intake) Flaquito Breaux MD [Primary Care Provider] - 1-2 days Patient Instructions/Handouts: How to Stop Smoking (DC), Depression (DC) Activity/Diet/Wound Care/Special Instructions: Avoid the use of street drugs and alcohol. Take all prescriptions as prescribed. When you are in need of refills on your medications, please contact your medical provider and/or outpatient psychiatrist to have this done. Please go to scheduled outpatient appointment for aftercare treatment. If symptoms return or become worse, call the crisis line at and/or go to the nearest emergency room for evaluation Discharge Disposition: HOME SELF-CARE
== END 2022-05-01 12:04 | disposition home or self-care (01) | DRG 881 ==
LOC: EC 00:27 → 3MHU 06:40
PROVIDERS: ADMIT Psychiatry & Neurology Psychiatry; ATTEND Psychiatry & Neurology Psychiatry
DX: F32.9 Major depressive disorder, single episode, unspecified (principal); F12.90 Cannabis use, unspecified, uncomplicated; F17.210 Nicotine dependence, cigarettes, uncomplicated; F41.9 Anxiety disorder, unspecified; G47.00 Insomnia, unspecified; Z56.0 Unemployment, unspecified; Z79.899 Other long term (current) drug therapy; Z20.822 Contact with and (suspected) exposure to COVID-19
CPT/HCPCS: 80306; 81003; 82075; 87635; 99285

== ENCOUNTER 2024-10-11 22:54 | Emergency (ER) | payer OTHER ==
[2024-10-11 23:07] VITALS: RESP 18
--- NOTE | 2024-10-11 23:11 | ED ---
Abdominal Pain HPI - General Source: patient, RN notes reviewed Mode of arrival: ambulatory Limitations: no limitations - History of Present Illness MD Complaint: abdominal pain <Veronica Boggs - Last Filed: 10/11/24 23:10> - General Source: patient, RN notes reviewed, old records reviewed Mode of arrival: ambulatory Limitations: no limitations - History of Present Illness Complaint: abdominal pain -: hour(s) Location: LLQ, L flank Migration to: periumbilical, LLQ, L flank Severity scale (1-10): 10 Quality: sharp Consistency: constant Improves With: nothing, eating Worsens With: nothing Associated Symptoms: nausea <Ajit Hilliard - Last Filed: 10/12/24 01:32> - General Chief Complaint: Abdominal Pain Stated Complaint: abd pain Time Seen by Provider: 10/11/24 23:08 - History of Present Illness Initial Comments: Quick Note: This is a 24-year-old male who presents to the emergency department for abdominal pain. Patient reports left lower quadrant abdominal pain starting about 2 hours prior to arrival. States that it is sharp and stabbing in nature. Denies any radiation of pain. Denies any history of kidney stones or similar pain in the past. (Veronica Boggs) This is a 24-year-old to the ER for evaluation abdominal pain here patient presents with severe left lower quadrant left flank abdominal pain rating to his groin sharp and stabbing doubling him over with severe pain. He has had similar pain but this is much much worse positive nausea no vomiting does admit to some pain with peeing (Ajit Hilliard) - Related Data Previous Rx's Medication Instructions Recorded Nicotine 14Mg/24Hr Patch [Habitrol] 1 patch TRANSDERM DAILY 15 Days 05/01/22 patch Sertraline [Zoloft] 100 mg PO HS 30 Days tab 05/01/22 traZODone HCL [Desyrel] 50 mg PO HS 30 Days tab 05/01/22 Allergies Allergy/AdvReac Type Severity Reaction Status Date / Time No Known Allergies Allergy Verified 10/11/24 23:04 Review of Systems ROS Other: All systems not noted in ROS Statement are negative. <Veronica Boggs - Last Filed: 10/11/24 23:10> ROS Other: All systems not noted in ROS Statement are negative. <Roskopp,Ajit B - Last Filed: 10/12/24 01:32> ROS Statement: Those systems with pertinent positive or pertinent negative responses have been documented in the HPI. Past Medical History Past Medical History: Asthma History of Any Multi-Drug Resistant Organisms: None Reported Past Surgical History: Tonsillectomy Additional Past Surgical History / Comment(s): Pt is dressed in his own street clothes. Past Anesthesia/Blood Transfusion Reactions: No Reported Reaction Past Psychological History: ADD/ADHD, Depression Smoking Status: Current every day smoker, Vaper Past Alcohol Use History: None Reported Past Drug Use History: None Reported - Past Family History Father Family Medical History: COPD <Veronica Boggs - Last Filed: 10/11/24 23:10> General Exam Limitations: no limitations <Veronica Boggs - Last Filed: 10/11/24 23:10> General appearance: alert, in no apparent distress Head exam: Present: atraumatic, normocephalic, normal inspection Eye exam: Present: normal appearance, PERRL, EOMI. Absent: scleral icterus, conjunctival injection, periorbital swelling ENT exam: Present: normal exam, mucous membranes moist Neck exam: Present: normal inspection. Absent: tenderness, meningismus, lymphadenopathy Respiratory exam: Present: normal lung sounds bilaterally. Absent: respiratory distress, wheezes, rales, rhonchi, stridor Cardiovascular Exam: Present: regular rate, normal rhythm, normal heart sounds. Absent: systolic murmur, diastolic murmur, rubs, gallop, clicks GI/Abdominal exam: Present: soft, normal bowel sounds. Absent: distended, tenderness, guarding, rebound, rigid Extremities exam: Present: normal inspection, full ROM, normal capillary refill. Absent: tenderness, pedal edema, joint swelling, calf tenderness Back exam: Present: normal inspection Neurological exam: Present: alert, oriented X3, CN II-XII intact Psychiatric exam: Present: normal affect, normal mood Skin exam: Present: warm, dry, intact, normal color. Absent: rash <SendyeduardoAjit - Last Filed: 10/12/24 01:32> - General Exam Comments Initial Comments: Visual Physical Exam Vital signs reviewed General: Well-appearing, nontoxic, no acute distress. Head: Normocephalic, atraumatic Eyes: PERRLA, EOMI ENT: Airway patent Chest: Nonlabored breathing Skin: No visual rash, normal skin tone Neuro: Alert and oriented 3 Musculoskeletal: No gross abnormalities (Veronica Boggs) Course <Ajit Hilliard - Last Filed: 10/12/24 01:32> Vital Signs 10/11/24 23:05 Temperature 97.9 F Pulse Rate 110 H Respiratory 18 Rate Blood Pressure 141/96 O2 Sat by Pulse 98 Oximetry - Reevaluation(s) Reevaluation #1: 10/12/24 01:32 Medical records reviewed (Ajit Hilliard) Reevaluation #2: 10/12/24 01:32 Patient symptoms improved (Ajit Hilliard) Reevaluation #3: 10/12/24 01:32 Patient informed of results and questions answered (Ajit Hilliard) Reevaluation #4: Was pt. sent in by a medical professional or institution (, PA, ADMINISTRATIVE OFFICE ASSISTANT, urgent care, hospital, or custodial...) When possible be specific @ -no Did you speak to anyone other than the patient for history (EMS, parent, family, police, friend...)? What history was obtained from this source @ -no Did you review nursing and triage notes (agree or disagree)? Why? @ -agree Are old charts reviewed (outside hosp., previous admission, EMS record, old EKG, old radiological studies, urgent care reports/EKG's, custodial records)? Report findings @ -yes Differential Diagnosis (chest pain, altered mental status, abdominal pain women, abdominal pain men, vaginal bleeding, weakness, fever, dyspnea, syncope, headache, dizziness, GI bleed, back pain, seizure, CVA, palpatations, mental health, musculoskeletal)? @ -prior EKG interpreted by me (3pts min.). @ -yes X-rays interpreted by me (1pt min.). @ -yes negative for acute disease CT interpreted by me (1pt min.). @ -no U/S interpreted by me (1pt. min.). @ -no What testing was considered but not performed or refused? (CT, X-rays, U/S, labs)? Why? @ -none What meds were considered but not given or refused? Why? @ -none Did you discuss the management of the patient with other professionals (professionals i.e. , PA, ADMINISTRATIVE OFFICE ASSISTANT, lab, RT, psych nurse, social media executive, performance management consultant, teacher, custody officer, catalytic case operator)? Give summary @ -no Was smoking cessation discussed for >3mins.? @ -no Was critical care preformed (if so, how long)? @ -no Were there social determinants of health that impacted care today? How? (Homelessness, low income, unemployed, alcoholism, drug addiction, transportation, low edu. Level, literacy, decrease access to med. care, shelter, rehab)? @ -none Was there de-escalation of care discussed even if they declined (Discuss DNR or withdrawal of care, Hospice)? DNR status @ -no What co-morbidities impacted this encounter? (DM, HTN, Smoking, COPD, CAD, Cancer, CVA, ARF, Chemo, Hep., AIDS, mental health diagnosis, sleep apnea, morbid obesity)? @ -none Was patient admitted / discharged? Hospital course, mention meds given and route, prescriptions, significant lab abnormalities, going to OR and other pertinent info. @ - Undiagnosed new problem with uncertain prognosis? @ -no Drug Therapy requiring intensive monitoring for toxicity (Heparin, Nitro, Insulin, Cardizem)? @ -no Were any procedures done? @ -no Diagnosis/symptom? @ - Acute, or Chronic, or Acute on Chronic? @ -Acute Uncomplicated (without systemic symptoms) or Complicated (systemic symptoms)? @ -Complicated Side effects of treatment? @ -no Exacerbation, Progression, or Severe Exacerbation? @ -exacerbation Poses a threat to life or bodily function? How? (Chest pain, USA, ME, pneumonia, PE, COPD, DKA, ARF, appy, cholecystitis, CVA, Diverticulitis, Homicidal, Suicidal, threat to staff... and all critical care pts) @ -yes (Ajit Hilliard) Reevaluation #5: Differential Abdominal Pain Men: Appendicitis, cholecystitis, diverticulosis, ischemic bowel, pancreatitis, hepatitis, UTI, gastroenteritis, AAA, incarcerated hernia, bowel obstruction, constipation, inflammatory bowel, hepatitis, peptic ulcer disease, splenic infarction, perforated viscus, testicular torsion, this is not meant to be an all-inclusive list (Ajit Hilliard) Medical Decision Making <Veronica Boggs - Last Filed: 10/11/24 23:10> - Lab Data Result diagrams: 10/11/24 23:43 10/11/24 23:43 - Radiology Data Radiology results: report reviewed (CT abdomen pelvis negative for acute disease), image reviewed <Ajit Hilliard - Last Filed: 10/12/24 01:32> - Medical Decision Making I performed the QuickNote portion of this chart. Signed Veronica Boggs PA-C. (Veronica Boggs) 24 male to ER for evaluation of severe sudden onset of left-sided abdominal pain left-sided flank pain sharp and stabbing in nature intermittent, multiple attacks here in the ER with symptoms of have improved, hematuria likely kidney stone although none found on CT scan. Patient can be discharged home (Ajit Valenzuela) - Lab Data Lab Results 10/11/24 10/11/24 10/11/24 Range/Units 23:23 23:43 23:43 WBC 14.15 H (4.50-10.00) 10*3/uL RBC 4.71 (4.40-5.60) 10*6/uL Hgb 14.6 (13.0-17.0) g/dL Hct 41.6 (39.6-50.0) % MCV 88.3 (80.0-97.0) fL MCH 31.0 (27.0-32.0) pg MCHC 35.1 (32.0-37.0) g/dL Plt Count 364 (140-440) 10*3/uL MPV 9.7 (9.5-12.2) fL Immature Gran % (Auto) 0.3 % Neutrophils % 78.7 % Lymphocytes % 12.7 % Monocytes % 7.1 % Eosinophils % 0.4 % Basophils % 0.8 % Immature Gran # 0.04 (0.00-0.04) 10*3/uL Neutrophils # 11.16 H (1.80-7.70) 10*3/uL Lymphocytes # 1.79 (0.90-5.00) 10*3/uL Monocytes # 1.00 (0.20-1.00) 10*3/uL Eosinophils # 0.05 (0.04-0.35) 10*3/uL Basophils # 0.11 H (0.00-0.10) 10*3/uL Sodium 144 (137-145) mmol/L Potassium 4.4 (3.5-5.1) mmol/L Chloride 107 (98-107) mmol/L Carbon Dioxide 23 (22-30) mmol/L Anion Gap 14 mmol/L BUN 24 H (9-20) mg/dL Creatinine 1.10 (0.66-1.25) mg/dL Est GFR (CKD-EPI)AfAm >90 (>60 ml/min/1.73 sqM) Est GFR (CKD-EPI)NonAf >90 (>60 ml/min/1.73 sqM) Glucose 98 (74-99) mg/dL Plasma Lactic Acid Kuldip (0.7-2.0) mmol/L Calcium 10.4 H (8.4-10.2) mg/dL Total Bilirubin 0.4 (0.2-1.3) mg/dL AST 36 (17-59) U/L ALT 66 H (4-49) U/L Alkaline Phosphatase 81 (38-126) U/L Total Protein 8.1 (6.3-8.2) g/dL Albumin 5.1 H (3.5-5.0) g/dL Amylase 46 (30-110) U/L Lipase 64 (23-300) U/L Urine Color Yellow Urine Appearance Clear (Clear) Urine pH 5.5 (5.0-8.0) Ur Specific [place] 1.029 (1.001-1.035) Urine Protein Trace H (Negative) Urine Glucose (UA) Negative (Negative) Urine Ketones Negative (Negative) Urine Blood Large H (Negative) Urine Nitrite Negative (Negative) Urine Bilirubin Negative (Negative) Urine Urobilinogen <2.0 (<2.0) mg/dL Ur Leukocyte Esterase Negative (Negative) Urine RBC >182 H (0-5) /hpf Urine WBC 6 H (0-5) /hpf Urine Mucus Few H (None) /hpf Urine Yeast (Budding) Rare H (None) /hpf 10/11/24 Range/Units 23:43 WBC (4.50-10.00) 10*3/uL RBC (4.40-5.60) 10*6/uL Hgb (13.0-17.0) g/dL Hct (39.6-50.0) % MCV (80.0-97.0) fL MCH (27.0-32.0) pg MCHC (32.0-37.0) g/dL Plt Count (140-440) 10*3/uL MPV (9.5-12.2) fL Immature Gran % (Auto) % Neutrophils % % Lymphocytes % % Monocytes % % Eosinophils % % Basophils % % Immature Gran # (0.00-0.04) 10*3/uL Neutrophils # (1.80-7.70) 10*3/uL Lymphocytes # (0.90-5.00) 10*3/uL Monocytes # (0.20-1.00) 10*3/uL Eosinophils # (0.04-0.35) 10*3/uL Basophils # (0.00-0.10) 10*3/uL Sodium (137-145) mmol/L Potassium (3.5-5.1) mmol/L Chloride (98-107) mmol/L Carbon Dioxide (22-30) mmol/L Anion Gap mmol/L BUN (9-20) mg/dL Creatinine (0.66-1.25) mg/dL Est GFR (CKD-EPI)AfAm (>60 ml/min/1.73 sqM) Est GFR (CKD-EPI)NonAf (>60 ml/min/1.73 sqM) Glucose (74-99) mg/dL Plasma Lactic Acid Kuldip 1.9 (0.7-2.0) mmol/L Calcium (8.4-10.2) mg/dL Total Bilirubin (0.2-1.3) mg/dL AST (17-59) U/L ALT (4-49) U/L Alkaline Phosphatase (38-126) U/L Total Protein (6.3-8.2) g/dL Albumin (3.5-5.0) g/dL Amylase (30-110) U/L Lipase (23-300) U/L Urine Color Urine Appearance (Clear) Urine pH (5.0-8.0) Ur Specific [place] (1.001-1.035) Urine Protein (Negative) Urine Glucose (UA) (Negative) Urine Ketones (Negative) Urine Blood (Negative) Urine Nitrite (Negative) Urine Bilirubin (Negative) Urine Urobilinogen (<2.0) mg/dL Ur Leukocyte Esterase (Negative) Urine RBC (0-5) /hpf Urine WBC (0-5) /hpf Urine Mucus (None) /hpf Urine Yeast (Budding) (None) /hpf Disposition <Veronica Boggs - Last Filed: 10/11/24 23:10> Is patient prescribed a controlled substance at d/c from ED?: No Time of Disposition: 01:00 <Ajit Hilliard - Last Filed: 10/12/24 01:32> Clinical Impression: Kidney stone on left side, Hematuria Disposition: HOME SELF-CARE Condition: Good Instructions (If sedation given, give patient instructions): Kidney Stones (ED), Hematuria (ED) Referrals: None,Stated [Primary Care Provider] - 1-2 days
[2024-10-11 23:46] LABS: Appearance,Urine Clear (Clear); Bilirubin,Urine Negative (Negative); Blood,Urine Large (Negative); Budding Yeast,Urine Rare /hpf; Color,Urine Yellow; Glucose,Urine (UA) Negative (Negative); Ketones,Urine Negative (Negative); Leukocyte Esterase,Urine Negative (Negative); Mucus,Urine Few /hpf; Nitrite,Urine Negative (Negative); PH, Urine 5.5 (5.0-8.0); Protein,Urine Trace (Negative); RBC,Urine >182 /hpf (0-5); Specific Gravity,Urine 1.029 (1.001-1.035); Urobilinogen,Urine <2.0 mg/dL (<2.0); WBC,Urine 6 /hpf (0-5)
[2024-10-11 23:54] LABS: Basophils # (A) 0.11 10*3/uL (0.00-0.10); Basophils % (A) 0.8 %; Eosinophils # (A) 0.05 10*3/uL (0.04-0.35); Eosinophils % (A) 0.4 %; HCT 41.6 % (39.6-50.0); HGB 14.6 g/dL (13.0-17.0); Lymphocytes # (A) 1.79 10*3/uL (0.90-5.00); Lymphocytes % (A) 12.7 %; MCHC 35.1 g/dL (32.0-37.0); MCV 88.3 fL (80.0-97.0); Mean Platelet Volume 9.7 fL (9.5-12.2); Monocytes % (A) 7.1 %; Neutrophils # (A) 11.16 10*3/uL (1.80-7.70); Neutrophils % (A) 78.7 %; Platelet Count 364 10*3/uL (140-440); RBC 4.71 10*6/uL (4.40-5.60); WBC 14.15 10*3/uL (4.50-10.00)
--- NOTE | 2024-10-12 00:40 | CT ---
EXAM: CT Abdomen and Pelvis With Intravenous Contrast CLINICAL HISTORY: LLQ pain TECHNIQUE: Axial computed tomography images of the abdomen and pelvis with intravenous contrast. CTDI is 33.3 mGy and DLP is 1793.4 mGy-cm. This CT exam was performed using one or more of the following dose reduction techniques: automated exposure control, adjustment of the mA and/or kV according to patient size, and/or use of iterative reconstruction technique. CONTRAST: 100 mL Isovue-300 COMPARISON: No relevant prior studies available. FINDINGS: Lung bases: Unremarkable. No mass. No consolidation. ABDOMEN: Liver: Unremarkable. No mass. Gallbladder and bile ducts: Unremarkable. No calcified stones. No ductal dilation. Pancreas: Unremarkable. No mass. No ductal dilation. Spleen: Unremarkable. No splenomegaly. Adrenals: Unremarkable. No mass. Kidneys and ureters: The kidneys demonstrate normal enhancement without pyelonephritis or hydronephrosis. No obstructive ureteral stones. Delayed phase imaging through the kidneys demonstrate normal excreted contrast in the renal collecting systems and proximal ureters. Stomach and bowel: No bowel obstruction. No asymmetric bowel mucosal abnormality. Minimal stool burden in the right colon. No diverticulitis. PELVIS: Appendix: The stomach is moderately distended with retained oral contents. No gastric mucosal thickening. A normal-caliber appendix is noted extending posteriorly from the cecum in the right pelvis. Bladder: Unremarkable. No mass. Reproductive: Unremarkable as visualized. ABDOMEN and PELVIS: Intraperitoneal space: Unremarkable. No free air. No significant fluid collection. Bones/joints: No acute fracture. No dislocation. Soft tissues: Unremarkable. Vasculature: Unremarkable. No abdominal aortic aneurysm. Lymph nodes: Unremarkable. No enlarged lymph nodes. IMPRESSION: No findings within the abdomen or pelvis to suggest the patient's reported clinical symptoms.
[2024-10-12 00:52] LABS: ALT 66 U/L (4-49); AST 36 U/L (17-59); African American GFR (CKD) >90 (>60 ml/min/1.73 sqM); Albumin 5.1 g/dL (3.5-5.0); Alkaline Phosphatase 81 U/L (38-126); Amylase 46 U/L (30-110); Anion Gap 14 mmol/L; Blood Urea Nitrogen 24 mg/dL (9-20); Calcium 10.4 mg/dL (8.4-10.2); Carbon Dioxide 23 mmol/L (22-30); Chloride 107 mmol/L (98-107); Glucose 98 mg/dL (74-99); Lipase 64 U/L (23-300); Non-African American GFR(CKD) >90 (>60 ml/min/1.73 sqM); Potassium 4.4 mmol/L (3.5-5.1); Sodium 144 mmol/L (137-145); Total Bilirubin 0.4 mg/dL (0.2-1.3); Total Protein 8.1 g/dL (6.3-8.2)
[2024-10-12] MEDS: ONDANSETRON 4 MG/2 ML VIAL IVP STA (02:27)
[2024-10-12] MEDS: KETOROLAC 15 MG/ML 1 ML VIAL IVP STA (02:27)
[2024-10-12] MEDS: ONDANSETRON 4 MG ODT STARTER PACK 2 TAB BTL PO STA (02:29)
[2024-10-12] MEDS: traMADol 50 MG STARTER PACK 3 TAB BTL PO STA (02:29)
[2024-10-12 02:50] VITALS: BP 142/88; PULSE 87; TEMP 98.2
== END 2024-10-12 02:35 | disposition home or self-care (01) ==
LOC: EC 22:54
DX: N20.0 Calculus of kidney (principal); F17.290 Nicotine dependence, other tobacco product, uncomplicated
CPT/HCPCS: 99284; 96374; 96375; 36415; 80053; 82150; 83605; 83690; 85025; 81001; 74177; Q9967; 87086; 87491; 87591